=== PATIENT | female | born 1970 | race Caucasian/White ===

== ENCOUNTER 2018-02-02 06:37 | Day surgery (SDC) | payer BC, OTHER ==
[2018-01-31 14:53] VITALS: BMI 30.1
--- NOTE | 2018-02-01 15:45 | HP ---
HISTORY AND PHYSICAL CHIEF COMPLAINT: Right knee pain. 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 She notes pain along with intermittent locking. Her pain worsens with increased activity. She has tried IV anti-inflammatories and injection with only partial temporary relief. She notes daily symptoms with significant limitations. She had a previous arthroscopy 10 years ago. PAST MEDICAL HISTORY: Significant for hypertension. PAST SURGICAL HISTORY: Significant for right knee arthroscopy. CURRENT MEDICATIONS: Atorvastatin, ibuprofen. ALLERGIES: She denies drug allergies. FAMILY HISTORY: Significant for heart disease and cancer. SOCIAL HISTORY: Significant for 1 pack per day tobacco use. REVIEW OF SYSTEMS: 16 point review of systems otherwise reviewed and is noncontributory. PHYSICAL EXAMINATION: On examination, the patient is approximately 5 foot 10, 205 pounds of endomorphic habitus. HEENT exam is nonfocal. Neck is supple. She has painless passive motion of her right hip. Straight leg raise is negative. Active motion right knee -6 to 130 degrees of flexion. She has a mild effusion. She is tender about the lateral joint line. Collaterals are stable, Rom's negative, Alaina's elicits lateral pain. Her distal neurovascular appears intact in the right lower extremity. MRI report from 01/09/2018 of the right knee shows a posterior medial Slater cyst along with medial compartment osteoarthrosis and significant motion artifact. IMPRESSION: 1. Internal derangement, right knee with possible lateral meniscal tear versus lateral femoral condyle chondral injury. 2. Right knee moderate medial compartment osteoarthrosis. 3. Increased body mass index. RECOMMENDATIONS: I talked to the patient at length regarding her condition and treatment options. At this point, she is having significant pain and mechanical symptoms despite conservative measures. After thorough discussion, she opts to proceed with surgery. We will plan to proceed with arthroscopic evaluation with possible partial lateral meniscectomy in addition to possible lateral femoral chondrectomy. Risks and benefits were discussed at length in layman's terms. We will likely perform that as an outpatient procedure. MMODL / IJN: [id number] /
[~2018-02-02 06:37] MED LIST: DEXAMETHASONE SOD PHOSPHATE 10 MG/ML 1 ML VIAL IV ONE; LACTATED RINGERS 1,000 ML IV SCH; MIDAZOLAM 2 MG/2 ML VIAL IV PRN; ONDANSETRON 4 MG/2 ML VIAL IVP ONE; SCOPOLAMINE 1.5MG/72HR PATCH TRANSDERM ONE; ceFAZolin IN SWFI 2 GM/20 ML SYRINGE IVP ONE; fentaNYL (PF) 50 MCG/ML 2 ML AMP IV PRN
[2018-02-02] MEDS ORDERED: LIDOCAINE 1% 20 ML VIAL (10MG/ML) FOR IV START INTRADERMA ONE (07:25)
[2018-02-02 07:29] VITALS: TEMP 97.6
[2018-02-02] MEDS ORDERED: LIDOCAINE 1% INJ 10MG/ML (20 ML MDV) ONE (07:57)
[2018-02-02] MEDS ORDERED: fentaNYL (PF) 50 MCG/ML 2 ML AMP ONE (07:57)
[2018-02-02] MEDS ORDERED: PROPOFOL 10 MG/ML 20 ML VIAL IV ONE (07:57)
--- NOTE | 2018-02-02 08:50 | P.OP ---
Date of Procedure: 02/02/18 Preoperative Diagnosis: Right knee internal derangement Postoperative Diagnosis: Right knee anterior horn lateral meniscal tear/anterior horn medial meniscal tear/reactive synovitis of the medial, lateral, and patellofemoral compartments Procedure(s) Performed: Right knee arthroscopic partial lateral meniscectomy/partial medial meniscectomy /partial synovectomy of the medial, lateral, and patellofemoral compartments Anesthesia: GETA Surgeon: Ivan Ventura Estimated Blood Loss (ml): 10 Pathology: none sent Condition: stable Disposition: PACU Indications for Procedure: The patient's a 47-year-old female presents with progressive right knee pain and mechanical symptoms despite conservative measures. A discussion of the risks and benefits of operative intervention versus continued conservative measures was made with the patient. She opted to proceed with surgery. Operative risks to include infection, neurovascular injury, development of blood clots, possible incomplete resolution of symptoms, possible worsening symptoms and need for subsequent procedures was discussed. Informed consent was obtained. Operative Findings: As below Description of Procedure: The patient was brought to the operating room, and after induction of general anesthesia examined the right knee. Collaterals were stable, Rom was negative, and posterior drawer was negative. The right lower extremity was prepped and draped in normal fashion. A superior lateral portal was made through a 3 mm skin incision superior and lateral to the patella. This was used for outflow. A lateral portal was made through a 5 mm vertical skin incision lateral to the patella tendon above the joint. Diagnostic arthroscopy was performed. A medial portal was made through a similar incision medial to the patella tendon above the joint line. On inspection of the medial compartment, the posterior and middle one third of the medial meniscus was stable and intact. She had a macerated tear involving the anterior horn of the medial meniscus in the white-junction. This was debrided back to stable base with a motorized shaver. Reactive synovitis involving the anterior medial compartment was also debrided with motorized shaver. On inspection of the notch , the anterior cruciate ligament appeared be intact. On inspection of the lateral compartment, an anterior horn lateral meniscal tear was noted in the white-white junction. This was debrided back to a stable base with a motorized shaver. The middle and posterior portions of the lateral meniscus were stable and intact. Grade 2 chondral changes were noted diffusely involving the lateral tibial plateau. Reactive synovitis involving the anterior lateral and patellofemoral compartments was debrided with a motorized shaver. On inspection of the patellofemoral articulation, there is mild chondral fibrillation however no loose chondral fragments. The gutters were clear debris. The knee was then thoroughly irrigated. The portals were closed with Steri-Strips. A sterile dressing was applied in addition to a compression stocking. The patient was then awoken from general anesthesia and transferred to the recovery room in good condition. Blood loss was estimated at 10 mL. No complications were incurred.
[2018-02-02] MEDS ORDERED: HYDROcodone/APAP 5-325MG 1 EACH TAB PO ONE (10:00)
[2018-02-02 10:24] VITALS: BP 109/63; PULSE 81; RESP 18
== END 2018-02-02 11:04 | disposition home or self-care (01) ==
LOC: OR 06:37
PROVIDERS: ATTEND Orthopaedic Surgery
DX: S83.281A Other tear of lateral meniscus, current injury, right knee, initial encounter (principal); S83.241A Other tear of medial meniscus, current injury, right knee, initial encounter; X58.XXXA Exposure to other specified factors, initial encounter; M65.861 Other synovitis and tenosynovitis, right lower leg; M17.11 Unilateral primary osteoarthritis, right knee; I10 Essential (primary) hypertension; G47.411 Narcolepsy with cataplexy; Z79.1 Long term (current) use of non-steroidal anti-inflammatories (NSAID); Z79.899 Other long term (current) drug therapy; F17.210 Nicotine dependence, cigarettes, uncomplicated
CPT/HCPCS: 81025; 29880; J1100; J2405; J2001; J3010; J2704; J0690

== ENCOUNTER → 2018-10-02 | Outpatient (CLI) | payer BC ==
--- NOTE | 2018-10-02 13:04 | MR ---
EXAMINATION TYPE: MR knee RT wo con DATE OF EXAM: 10/02/2018 COMPARISON: Outside right knee x-ray September 20, 2018. HISTORY: Pain in right knee per order. Outer pain, locking sensation, and swelling for over a year pe r patient. TECHNIQUE: Multiplanar, multisequence images of the knee is performed without IV contrast. FINDINGS: MEDIAL MENISCUS: Anterior and posterior horns are intact without tear. LATERAL MENISCUS: Anterior and posterior horns are intact without tear. CRUCIATE LIGAMENTS: The posterior cruciate ligaments is intact and unremarkable. Anterior cruciate li gament shows marked increased signal and thickening of fibers sagittal image 17 for reference. Angle is maintained. No associated injuries are evident. COLLATERAL LIGAMENTS: The medial collateral ligament and lateral collateral ligament complex are inta ct and unremarkable. EXTENSOR MECHANISM: Visualized quadriceps and patellar tendons are intact. EFFUSION: There is moderate size suprapatellar joint effusion. POPLITEAL CYST: There is moderate size multiseptated popliteal/graham cyst measuring 6.2 cm long axis sagittal image 9. TRICOMPARTMENT SPACES: Mild to moderate narrowing patellofemoral and medial tibiofemoral compartments is seen. No significant spurring is present. CARTILAGE: Tricompartment articular cartilage is fairly well-maintained. No significant chondral naveed parminder patella is present. BONE MARROW SIGNAL: No focal abnormal marrow signal is appreciated. OTHER: No additional significant abnormality is appreciated. IMPRESSION: 1. Mild to moderate degenerative changes patellofemoral and medial tibiofemoral compartment. 2. Abnormal appearance ACL favors myxoid degeneration over partial tear. 3. Moderate size suprapatellar joint effusion. 4. Moderate size multiseptated popliteal cyst.
== END | disposition home or self-care (01) ==
LOC: RADMRIMAIN 12:09
PROVIDERS: ATTEND Orthopaedic Surgery
DX: M17.11 Unilateral primary osteoarthritis, right knee (principal); M71.21 Synovial cyst of popliteal space [Baker], right knee